=== PATIENT | male | born 1985 | race African-American/Black ===

== ENCOUNTER 2019-11-09 13:11 | Emergency (ER) | payer MEDICAID ==
[~2019-11-09] VITALS: Ht 193 cm; Wt 81.0 kg
[2019-11-09] MEDS ORDERED: IBUPROFEN 600MG TABLET PO ONE (15:30)
[2019-11-09 15:40] VITALS: BP 127/67
== END 2019-11-09 15:47 | disposition home or self-care (01) ==
LOC: ER 13:11
DX: J02.9 Acute pharyngitis, unspecified (principal)
CPT/HCPCS: 99282

== ENCOUNTER 2020-01-30 10:30 | Emergency (ER) | payer MEDICAID ==
[~2020-01-30] VITALS: Ht 193 cm; Wt 84.0 kg
[2020-01-30] MEDS ORDERED: FLUORESCEIN SODIUM 1MG/STRIP RIGHTEYE ONE (11:00)
[2020-01-30] MEDS ORDERED: TETRACAINE 0.5% OPHTH DROPS 4ML RIGHTEYE ONE (12:00)
[2020-01-30] MEDS ORDERED: IBUPROFEN 600MG TABLET PO ONE (12:00)
[2020-01-30 12:04] VITALS: BP 140/66
== END 2020-01-30 12:34 | disposition home or self-care (01) ==
LOC: ER 10:30
DX: H10.021 Other mucopurulent conjunctivitis, right eye (principal)
CPT/HCPCS: 99283

== ENCOUNTER 2020-02-03 19:55 | Emergency (ER) | payer MEDICAID ==
[~2020-02-03] VITALS: Ht 193 cm; Wt 84.0 kg
[2020-02-03 20:18] VITALS: BP 137/88
== END 2020-02-03 21:03 | disposition home or self-care (01) ==
LOC: ER 19:55
DX: R68.89 Other general symptoms and signs (principal)
CPT/HCPCS: 99281